=== PATIENT | female | born 1950 | race Caucasian/White ===

== ENCOUNTER 2018-10-02 06:55 | Day surgery (SDC) | payer MEDICARE, BC ==
[~2018-10-02] VITALS: Ht 162.6 cm; Wt 74.2 kg
[2018-10-02] MEDS ORDERED: LIDOcaine 1% 30ml preserv. free vial IJ ONE (07:10)
[2018-10-02 07:37] VITALS: BP 159/91
[2018-10-02] MEDS ORDERED: LEVO137T24 PO (08:17)
[2018-10-02] MEDS ORDERED: VENL150C2 PO (08:17)
[2018-10-02] MEDS ORDERED: cytomel PO (08:17)
[2018-10-02] MEDS ORDERED: water pill (08:17)
[2018-10-02] MEDS ORDERED: LIDOcaine 1%/PF 5ML 10 MG/ML VIAL ONE (08:19)
[2018-10-02 08:35] VITALS: BP 151/84
== END 2018-10-02 08:55 | disposition home or self-care (01) ==
LOC: SSTAY O 06:55
PROVIDERS: ATTEND Radiology Diagnostic Radiology
DX: N64.59 Other signs and symptoms in breast (principal); I10 Essential (primary) hypertension; Z87.39 Personal history of other diseases of the musculoskeletal system and connective tissue; Z98.41 Cataract extraction status, right eye; Z98.42 Cataract extraction status, left eye; Z86.69 Personal history of other diseases of the nervous system and sense organs; Z72.89 Other problems related to lifestyle; Z85.3 Personal history of malignant neoplasm of breast; Z90.13 Acquired absence of bilateral breasts and nipples; Z98.82 Breast implant status; Z79.899 Other long term (current) drug therapy
CPT/HCPCS: 76642; J2001; J3490

== ENCOUNTER 2019-12-22 05:03 | Day surgery (SDC) | payer MEDICARE, BC ==
[2019-12-17 12:58] LABS: BASOPHILS % (AUTO) 0.3 % (0-1); EOSINOPHILS # (AUTO) 0.1 X10'3 (0-0.9); EOSINOPHILS % (AUTO) 1.8 % (0-6); HEMATOCRIT 43.3 % (35.0-45.0); HEMOGLOBIN 14.8 g/dl (12.0-16.0); LYMPHOCYTES % (AUTO) 30.3 % (21-51); MEAN CORPUSCULAR HEMOGLOBIN 29.3 PG (27.0-31.0); MEAN CORPUSCULAR HGB CONC 34.2 g/dL (33.0-36.5); MEAN CORPUSCULAR VOLUME 85.6 FL (78-98); MEAN PLATELET VOLUME 8.7 FL (7.4-10.4); MONOCYTES # (AUTO) 0.6 X10'3 (0-0.9); MONOCYTES % (AUTO) 8.6 % (2-12); PLATELET COUNT 227 X10'3 (140-440); RED BLOOD COUNT 5.06 X10'6 (4.20-5.60); WHITE BLOOD COUNT 6.7 X10'3 (4.5-11.0)
[2019-12-17 13:04] LABS: ALBUMIN 3.7 G/DL (3.4-5.0); ANION GAP 7 (8-16); BLOOD UREA NITROGEN 17 MG/DL (7-18); BUN/CREATININE RATIO 23.3 (6.6-38.0); CALCIUM 8.8 MG/DL (8.5-10.1); CHLORIDE 111 MMOL/L (99-107); CREATININE 0.73 MG/DL (0.40-0.90); GLUCOSE 100 MG/DL (70-104); SODIUM 147 MMOL/L (135-145); TOTAL CARBON DIOXIDE 29.2 MMOL/L (24-32); eGFR 79 ML/MIN
[2019-12-17 13:07] LABS: PARTIAL THROMBOPLASTIN TIME 25 SECONDS (22-32)
[2019-12-22] VITALS (8 sets, daily range): BP systolic 131–149; BP diastolic 59–82
[~2019-12-22] VITALS: Ht 162.6 cm; Wt 77.1 kg
[~2019-12-22 05:03] MED LIST: LEVO137T24 PO; VENL150C2 PO; cytomel PO; water pill
[2019-12-22] MEDS ORDERED: LIDOcaine/PRILOcaine 5gm cream TP ONE (05:25)
[2019-12-22] MEDS ORDERED: diphenhydrAMINE 25mg capsule PO PRN (05:30)
[2019-12-22] MEDS ORDERED: LORazepam 0.5 MG tablet PO PRN (05:30)
[2019-12-22] MEDS ORDERED: normal saline 1,000 ML IV SCH (05:30)
[2019-12-22] MEDS ORDERED: VENL75TA4 PO (05:42)
[2019-12-22] MEDS ORDERED: ROSU10TA2 PO (05:42)
[2019-12-22] MEDS ORDERED: AZIL40TA PO (05:42)
[2019-12-22] MEDS ORDERED: LIOT5TAB10 PO (05:42)
[2019-12-22] MEDS ORDERED: ASPI81TA52 PO (05:42)
[2019-12-22] MEDS ORDERED: nitroGLYCERIN-Tridil 50MG/D5W 250 ML IV ONE (06:13)
[2019-12-22] MEDS ORDERED: fentaNYL/PF 50MCG/1 ML 2ML syringe ONE (06:14)
[2019-12-22] MEDS ORDERED: heparin 1,000unit/ml 10ml vial 10 ML ONE (06:14)
[2019-12-22] MEDS ORDERED: midazolam 2 mg/2 ml injection ONE (06:14)
[2019-12-22] MEDS ORDERED: verapamil 2.5 mg/ml inj IV ONE (06:14)
[2019-12-22] MEDS ORDERED: iohexol 350 MG/ML 50ML vial IV ONE (06:15)
[2019-12-22] MEDS ORDERED: iohexol 350MG/ML 100ml bottle IV ONE (06:15)
[2019-12-22] MEDS ORDERED: LIDOcaine 1% (10mg/ml)w/preservative injection 20ml MDV ONE (06:28)
[2019-12-22] MEDS ORDERED: OXAZEpam 15mg capsule PO PRN (07:40)
[2019-12-22] MEDS ORDERED: HYDROcodone/acetaminophen 10/325mg tab PO PRN (07:40)
[2019-12-22] MEDS ORDERED: ondansetron/PF 4mg/2ml inj IV PRN (07:40)
[2019-12-22] MEDS ORDERED: normal saline 1000ml 1,000 ML IV SCH (07:40)
[2019-12-22] MEDS ORDERED: HYDROcodone/acetaminophen 5mg/325mg tablet PO PRN (07:40)
[2019-12-22] MEDS ORDERED: proCHLORperazine 10 MG/2 ml inj IV PRN (07:40)
== END 2019-12-22 10:15 | disposition home or self-care (01) ==
LOC: SSTAY O 05:03
PROVIDERS: ATTEND Internal Medicine Interventional Cardiology
DX: R94.39 Abnormal result of other cardiovascular function study (principal); R07.9 Chest pain, unspecified; I10 Essential (primary) hypertension; E03.9 Hypothyroidism, unspecified; E78.5 Hyperlipidemia, unspecified; Z98.890 Other specified postprocedural states; Z88.8 Allergy status to other drugs, medicaments and biological substances; Z91.041 Radiographic dye allergy status; Z79.899 Other long term (current) drug therapy
CPT/HCPCS: 36415; 80048; 85025; 85610; 85730; 93005; 93458; 99152; C1769; C1894; J1644; J2001; J2250; J3010; J7030; Q0163; Q9967; A4620; A5120; A6258; J3490